=== PATIENT | female | born 1990 | race Caucasian/White ===

== ENCOUNTER → 2017-07-12 | Outpatient (CLI) | payer BC ==
[~2017-07-12] MED LIST: BREA1EAC5 MC; DCS100C PO; FOLI1TAB24 PO; HYDR-3720 PO; IBP800T PO; PREN1TAB19 PO
--- NOTE | 2017-07-12 09:37 | Diagnostic Imaging Report ---
PROCEDURE: US right lower extremity venous. TECHNIQUE: Multiple Real-time grayscale images were obtained over the right lower extremity in various projections. Additional duplex Doppler and color Doppler images were also obtained. DATE: 07/12/2017. INDICATION: 27-year-old female, right calf pain in . Evaluation for deep venous thrombosis. COMPARISON: None. FINDINGS: The right common femoral vein, right superficial femoral vein, and right popliteal vein are all compressible with normal flow and response to augmentation. The right posterior tibial and peroneal veins are patent. The visualized portions of the right deep femoral vein are patent. IMPRESSION: Negative for right lower extremity deep venous thrombosis. Dictated by: Dictated on workstation # [id number]
== END ==
LOC: RAD 08:52
PROVIDERS: ATTEND Obstetrics & Gynecology
DX: O99.89 Other specified diseases and conditions complicating pregnancy, childbirth and the puerperium (principal); Z3A.00 Weeks of gestation of pregnancy not specified

== ENCOUNTER 2017-08-01 15:43 | Outpatient (CLI) | payer BC ==
[~2017-08-01] VITALS: Ht 160 cm; Wt 90.3 kg
[2017-08-01 16:05] VITALS: BP 131/81
[2017-08-01] MEDS ORDERED: INFLUENZA TRIvalent 2017-2018 0.5 ML/45 MCG SYR IM ONE (16:45)
[2017-08-01] MEDS ORDERED: ONDANSETRON 4 MG/2 ML (SDV) Z0FRAN IVP ONE (17:00)
[2017-08-01] MEDS ORDERED: D5 LR IV SOLUTION 1,000 ML IV ONE (17:00)
[2017-08-01 17:35] LABS: BASOPHILS % (AUTO) 0 % (0-10); EOSINOPHILS % (AUTO) 0 % (0-10); HEMATOCRIT 37 % (35-52); LYMPHOCYTES % (AUTO) 6 % (12-44); MEAN CORPUSCULAR HEMOGLOBIN 31 PG (25-34); MEAN CORPUSCULAR HGB CONC 35 G/DL (32-36); MEAN CORPUSCULAR VOLUME 88 FL (80-99); MEAN PLATELET VOLUME 10.7 FL (7.4-10.4); MONOCYTES # (AUTO) 0.5 X 10^3 (0.0-1.0); MONOCYTES % (AUTO) 3 % (0-12); NEUTROPHILS # (AUTO) 15.1 X 10^3 (1.8-7.8); NEUTROPHILS % (AUTO) 91 % (42-75); PLATELET COUNT 232 10^3/uL (130-400); RED BLOOD COUNT 4.16 10^6/uL (4.35-5.85); RED CELL DISTRIBUTION WIDTH 13.8 % (10.0-14.5); WHITE BLOOD COUNT 16.6 10^3/uL (4.3-11.0)
[2017-08-01 17:57] LABS: ALANINE AMINOTRANSFERASE 17 U/L (0-55); ALBUMIN 3.4 GM/DL (3.2-4.5); ALKALINE PHOSPHATASE 122 U/L (40-136); BILIRUBIN,TOTAL 0.8 MG/DL (0.1-1.0); BUN/CREATININE RATIO 8; CALCIUM 9.2 MG/DL (8.5-10.1); CARBON DIOXIDE 20 MMOL/L (21-32); CHLORIDE 106 MMOL/L (98-107); CREATININE SERUM 0.61 MG/DL (0.60-1.30); GFR ESTIMATED > 60; GLUCOSE 87 MG/DL (70-105); POTASSIUM 3.8 MMOL/L (3.6-5.0); SODIUM 135 MMOL/L (135-145); TOTAL PROTEIN 6.7 GM/DL (6.4-8.2)
[2017-08-01 18:02] LABS: BAND NEUTROPHILS 8 %; BASOPHILS % (MANUAL) 0 %; EOSINOPHILS % (MANUAL) 0 %; LYMPHOCYTES % (MANUAL) 7 %; MONOCYTES % (MANUAL) 1 %; NEUTROPHILS % (MANUAL) 84 %; RBC MORPH NORMAL
[2017-08-01 18:10] VITALS: BP 132/82
[2017-08-01 19:15] VITALS: BP 132/82
--- NOTE | 2017-08-02 16:24 | Physician Query-Final Dx ---
SATNAM OCASIO 08/02/17 1624: Clinic Account Progress/Dx Physician Query: Please give diagnosis Date of Service Aug 01, 2017 at 15:43 ALVIN TILLMAN MD 08/03/17 0809: Clinic Account Progress/Dx DIAGNOSIS: Diagnosis False labor NINFA,SATNAM Aug 02, 2017 16:24 ALVIN TILLMAN MD Aug 03, 2017 08:09
== END 2017-08-01 19:15 | disposition home or self-care (01) ==
LOC: WSo 15:43 → LDRP 15:43 → WSo 19:15
PROVIDERS: ATTEND Obstetrics & Gynecology
DX: O47.03 False labor before 37 completed weeks of gestation, third trimester (principal); Z3A.31 31 weeks gestation of pregnancy
CPT/HCPCS: 36415; 80053; 85007; 85027; 96360; 96361; 99214

== ENCOUNTER → 2017-08-24 | Outpatient (CLI) | payer BC | LOC: LABNPT 13:26 | PROVIDERS: ATTEND Obstetrics & Gynecology | DX: O28.8 Other abnormal findings on antenatal screening of mother (principal) | CPT/HCPCS: 82570; 84156 ==

== ENCOUNTER → 2017-08-31 | Outpatient (CLI) | payer BC | LOC: LABNPT 13:34 | PROVIDERS: ATTEND Obstetrics & Gynecology | DX: O28.8 Other abnormal findings on antenatal screening of mother (principal) | CPT/HCPCS: 82570; 84156 ==

== ENCOUNTER 2017-09-13 11:38 | Outpatient (CLI) | payer BC ==
[~2017-09-13] VITALS: Ht 160 cm; Wt 90.3 kg
[2017-09-13] VITALS (10 sets, daily range): BP systolic 132–173; BP diastolic 82–104
[2017-09-13 12:28] LABS: BASOPHILS % (AUTO) 0 % (0-10); EOSINOPHILS % (AUTO) 0 % (0-10); HEMATOCRIT 34 % (35-52); HEMOGLOBIN 11.6 G/DL (11.5-16.0); LYMPHOCYTES # (AUTO) 1.2 X 10^3 (1.0-4.0); LYMPHOCYTES % (AUTO) 16 % (12-44); MEAN CORPUSCULAR HEMOGLOBIN 29 PG (25-34); MEAN CORPUSCULAR HGB CONC 34 G/DL (32-36); MEAN CORPUSCULAR VOLUME 86 FL (80-99); MEAN PLATELET VOLUME 11.7 FL (7.4-10.4); MONOCYTES # (AUTO) 0.5 X 10^3 (0.0-1.0); MONOCYTES % (AUTO) 7 % (0-12); NEUTROPHILS # (AUTO) 5.9 X 10^3 (1.8-7.8); NEUTROPHILS % (AUTO) 77 % (42-75); PLATELET COUNT 212 10^3/uL (130-400); RED BLOOD COUNT 3.98 10^6/uL (4.35-5.85); RED CELL DISTRIBUTION WIDTH 13.4 % (10.0-14.5); WHITE BLOOD COUNT 7.6 10^3/uL (4.3-11.0)
[2017-09-13 12:50] LABS: ALANINE AMINOTRANSFERASE 6 U/L (0-55); ALKALINE PHOSPHATASE 154 U/L (40-136); BILIRUBIN,TOTAL 0.4 MG/DL (0.1-1.0); BUN/CREATININE RATIO 11; CALCIUM 8.7 MG/DL (8.5-10.1); CARBON DIOXIDE 22 MMOL/L (21-32); CHLORIDE 108 MMOL/L (98-107); CREATININE SERUM 0.71 MG/DL (0.60-1.30); GFR ESTIMATED > 60; GLUCOSE 75 MG/DL (70-105); SODIUM 137 MMOL/L (135-145); TOTAL PROTEIN 5.8 GM/DL (6.4-8.2); URIC ACID 7.7 MG/DL (2.6-7.2)
--- NOTE | 2017-09-15 09:05 | Physician Query-Final Dx ---
SATNAM OCASIO 09/15/17 0905: Clinic Account Progress/Dx Physician Query: Please give diagnosis Date of Service Sep 13, 2017 at 11:38 ALVIN TILLMAN MD 09/16/17 1145: Clinic Account Progress/Dx DIAGNOSIS: Diagnosis severe PARUL SATNAM OCASIO Sep 15, 2017 09:05 ALVIN TILLMAN MD Sep 16, 2017 11:45
[2017-09-15] MEDS ORDERED: PREN-102 PO (10:45)
== END 2017-09-13 13:54 | disposition home or self-care (01) ==
LOC: WSo 11:38 → LDRP 11:39 → WSo 13:54
PROVIDERS: ATTEND Obstetrics & Gynecology
DX: O13.3 Gestational [pregnancy-induced] hypertension without significant proteinuria, third trimester (principal); Z3A.37 37 weeks gestation of pregnancy
CPT/HCPCS: 36415; 80053; 82570; 83615; 84156; 84550; 85025; 99213

== ENCOUNTER 2017-09-16 10:06 | Inpatient (IN) | payer BC ==
[2017-09-16] VITALS (7 sets, daily range): BP systolic 100–179; BP diastolic 60–104
[~2017-09-16] VITALS: Ht 160 cm; Wt 95.7 kg
[~2017-09-16 10:06] MED LIST changes: +PREN-102 PO
[2017-09-16] MEDS ORDERED: raNItidine 50 MG/NS 100 ML IVP IV NR ×2 (10:38)
[2017-09-16] MEDS ORDERED: CATHETER FLUSH 10 ML SYR IV PRN (10:45)
[2017-09-16] MEDS ORDERED: metroNIDAZOLE 500MG/100ML IVPB 100 ML IV ONE ×2 (10:45→11:45)
[2017-09-16] MEDS ORDERED: FAMOTIDINE 20MG/2ML IV (PEPCID) IV ONE (10:45)
[2017-09-16] MEDS ORDERED: CITRIC ACID/SOB CIT (BICITRA) 30 ML UDC PO ONE (10:45)
[2017-09-16] MEDS ORDERED: METOCLOPRAMIDE INJ 10 MG/2 ML (REGLAN) IV ONE (10:45)
[2017-09-16] MEDS ORDERED: ceFAZolin 2 GM IV Premixed 50 ML IV ONE (10:45)
[2017-09-16 10:54] LABS: BASOPHILS % (AUTO) 0 % (0-10); EOSINOPHILS % (AUTO) 0 % (0-10); HEMATOCRIT 37 % (35-52); HEMOGLOBIN 12.6 G/DL (11.5-16.0); LYMPHOCYTES # (AUTO) 1.6 X 10^3 (1.0-4.0); LYMPHOCYTES % (AUTO) 17 % (12-44); MEAN CORPUSCULAR HEMOGLOBIN 30 PG (25-34); MEAN CORPUSCULAR HGB CONC 34 G/DL (32-36); MEAN CORPUSCULAR VOLUME 87 FL (80-99); MEAN PLATELET VOLUME 11.8 FL (7.4-10.4); MONOCYTES # (AUTO) 0.7 X 10^3 (0.0-1.0); MONOCYTES % (AUTO) 8 % (0-12); NEUTROPHILS # (AUTO) 6.7 X 10^3 (1.8-7.8); NEUTROPHILS % (AUTO) 75 % (42-75); PLATELET COUNT 223 10^3/uL (130-400); RED BLOOD COUNT 4.26 10^6/uL (4.35-5.85); RED CELL DISTRIBUTION WIDTH 13.9 % (10.0-14.5)
[2017-09-16] MEDS ORDERED: D5 LR IV SOLUTION 1,000 ML IV SCH (11:34)
[2017-09-16] MEDS ORDERED: fentaNYL INJECTION 100 MCG/2 ML AMP ONE (11:37)
[2017-09-16] MEDS ORDERED: KETAMINE HCL 100 MG/ML 5 ML VIAL ONE (11:37)
--- NOTE | 2017-09-16 11:44 | History & Physical ---
History and Physical Date Seen by Provider: Sep 16, 2017 Time Seen by Provider: 11:40 This patient is a 26-year-old white female currently at 38-2/7 weeks' gestation with a due date of September 28, 2017. Her has been complicated by fairly significant PIH. Repeat lab work for preeclampsia and/or help syndrome have been reassuring. Patient denies rupture membranes or bleeding. Patient presents now for repeat delivery at 38-2/7 weeks' gestation due to her severe PIH. GBS culture was negative Allergies are none Medications are vitamins Medical social and surgical histories are per the antepartum record HEENT exam is normal Neck is supple no lymphadenopathy no thyromegaly Abdomen is gravid soft nontender nondistended Extremities show no clubbing cyanosis. There is no Homans sign. There is fairly notable pretibial pitting edema that is stable. Pelvic exam is deferred Blood pressures on admission are elevated to the 150s to 160s over 100 to 110s with episodically lower blood pressures Laboratory Tests 09/16/17 10:35 Assessment and plan 38-7 weeks gestation in patient with PIH and previous C- section admitted now for repeat delivery. Surgical risks and complications recovery and follow-up have all been fully discussed on this occasion and several times prior to now patient is ready to proceed 38-2/7 weeks gestation with PIH and previous Allergies and Home Medications Allergies Coded Allergies: No Known Drug Allergies (Unverified , 09/15/17) Home Medications Vits #93/Iron Fum/FA 1 Each Tablet, 1 EACH PO DAILY, (Reported) Patient Home Medication List Home Medication List Reviewed: Yes ALVIN TILLMAN MD Sep 16, 2017 11:44
[2017-09-16] MEDS ORDERED: ONDANSETRON 4 MG/2 ML (SDV) Z0FRAN IVP PRN (11:45)
[2017-09-16] MEDS ORDERED: ceFAZolin INJECTION 2,000 MG in NS (IVPB) 100 ML IV ONE (11:45)
[2017-09-16] MEDS ORDERED: D5 LR IV SOLUTION 1,000 ML IV ONE (11:45)
[2017-09-16] MEDS ORDERED: MEPERIDINE (DEMEROL) INJ 100 MG/ML IM PRN (11:45)
[2017-09-16] MEDS ORDERED: MEASLES,MUMPS,RUBELLA 1 EA INJ SC ONE (11:45)
[2017-09-16] MEDS ORDERED: TETANUS,DIPTH,PERTUSS P/F (BOOSTRIX) 0.5 ML VIAL IM ONE (11:45)
[2017-09-16] MEDS ORDERED: PROMETHAZINE INJ 25 MG/ML (PHENERGAN) AMP IM PRN (11:45)
[2017-09-16] MEDS ORDERED: PHENYLEPHRINE 100 MCG/ML 10 ML (ANESTHESIA) SYR ONE (12:29)
[2017-09-16] MEDS ORDERED: KETOROLAC 30 MG/ML VIAL ONE (12:30)
[2017-09-16] MEDS ORDERED: ONDANSETRON 4 MG/2 ML (SDV) Z0FRAN ONE (12:30)
[2017-09-16] MEDS ORDERED: LIDOCAINE PF 2% 5 ML (XYLOCAINE) VIAL ONE (12:36)
[2017-09-16] MEDS ORDERED: OXYTOCIN/NORMAL SALINE 1,000 ML IV ONE (12:36)
[2017-09-16] MEDS: KETOROLAC 30 MG/ML VIAL IVP SCH ×2 (12:40→19:59)
[2017-09-16] MEDS: OXYTOCIN/NORMAL SALINE 500 ML IV SCH ×2 (12:55→16:17)
[2017-09-16] MEDS ORDERED: LACTATED RINGERS 1,000 ML IV PRN (14:50)
[2017-09-16] MEDS: DOCUSATE SODIUM 100 MG (COLACE) CAP PO SCH (21:38)
[2017-09-17 00:30] VITALS: BP 134/81
--- NOTE | 2017-09-17 01:08 | OPERATIVE REPORT ---
DATE OF SERVICE: 09/16/2017 PREOPERATIVE DIAGNOSES: Term at 38 and 2/7 weeks' gestation with severe PIH and a previous . POSTOPERATIVE DIAGNOSES: Term at 38 and 2/7 weeks' gestation with severe PIH and a previous . OPERATIVE PROCEDURE: Repeat low transverse delivery of viable female infant with Apgars of 7 and 9 at 1 and 5 minutes respectively. Weight that is 7 lbs. 2 oz. time of 12:30 and cord blood pH was 7.3. OPERATIVE DESCRIPTION: With the patient in the supine position under satisfactory spinal anesthesia, she was prepped and draped in the usual fashion for abdominal surgery. A repeat Pfannenstiel incision made through the skin with a scalpel at the site of the patient's previous Pfannenstiel incision by removing that scar. The abdomen was then entered in the usual manner. Bladder retractor placed into position and clean scalpel was used to make a 4 cm hysterotomy incision transversely across the lower uterine segment. That incision was extended bluntly releasing clear fluid. A vigorous viable female was delivered via the uterine incision. Infant had Apgars of 7 and 9 and at 1 and 5 minutes respectively. The had spontaneous cry, moved all extremities and was quickly pink. The baby was bulb suctioned on delivery of the head and again on completion of delivery. The umbilical cord was doubly clamped and cut and the infant passed to the pediatric nurse in attendance for delivery. Cord bloods were obtained. The placenta delivered spontaneously Carbone. It was normal with a 3-vessel cord. The uterus was exteriorized. The interior wiped clean with a wet laparotomy sponge. Uterine incision was then closed with a running lock suture of 2-0 Vicryl. Hemostasis was complete. The uterus was returned to the abdominal cavity. All blood clot and debris removed from the abdominal cavity. With sponge, needle counts correct, hemostasis assured. The anterior parietal peritoneum was closed with running suture of 2-0 Vicryl. The rectus muscles were closed with that suture as well. The rectus fascia was closed with 2-0 Vicryl, subcutaneous tissue with 2-0 Vicryl and the skin was stapled. Sponge and needle counts were correct at the end of procedure. Estimated blood loss for the procedure was around 500 mL. The patient tolerated the procedure well and was transferred to the recovery room in stable condition. The infant had been taken stable to the full term nursery. Job ID: [id number] DocumentID: [id number] Dictated Date: 09/16/2017 12:51:47 Bull Ladle Tender Date: 09/16/2017 23:16:05 Dictated By: ALVIN TILLMAN MD MTDD
[2017-09-17] MEDS: KETOROLAC 30 MG/ML VIAL IVP SCH ×2 (02:34→09:30)
[2017-09-17 04:55] VITALS: BP 130/76
--- NOTE | 2017-09-17 07:57 | Progress Note-Standard ---
Standard Progress Note Progress Notes/Assess & Plan Date Seen by Provider: Sep 17, 2017 Time Seen by Provider: 07:56 Progress/Assessment & Plan This patient is without complaint. She is ambulating, voiding, tolerating oral intake well, has good pain control. Patient denies chest pain, denies shortness of breath, denies headache, denies nausea vomiting. Vital Signs Date Time Temp Pulse Resp B/P (MAP) Pulse Ox O2 Delivery O2 Flow Rate FiO2 09/17/17 04:55 98.6 94 18 130/76 (94) 98 Room Air 09/17/17 00:30 99.0 102 18 134/81 (98) 96 Room Air 09/16/17 19:55 97.6 93 18 130/80 (97) 98 Room Air 09/16/17 17:25 96.1 96 18 100/60 (73) 97 Room Air 09/16/17 15:50 117 20 138/84 (102) 100 Room Air 09/16/17 14:59 97.9 83 18 154/93 (113) Room Air 09/16/17 11:14 93 20 162/104 (123) Room Air 09/16/17 10:56 75 20 155/96 (115) Room Air 09/16/17 10:40 98.2 80 20 179/86 (117) Room Air I & O 09/17/17 07:00 Intake Total 2222 ml Output Total 1000 ml Balance 1222 ml Vital signs are stable. Patient is afebrile. Blood pressures have been quite labile from the time of admission but are normalizing now The abdomen is benign. The surgical incision is clean dry and intact. Extremities show clubbing cyanosis. There is no Homans sign. There is notable pretibial edema that is not abnormal at this point Assessment and plan postoperative day number 1 doing well. Plan for routine convalescence care today and consider discharge home tomorrow ALVIN TILLMAN MD Sep 17, 2017 7:57 am
[2017-09-17 09:30] VITALS: BP 144/92
[2017-09-17] MEDS ORDERED: KETOROLAC 30 MG/ML VIAL ONE (09:30)
[2017-09-17] MEDS: DOCUSATE SODIUM 100 MG (COLACE) CAP PO SCH ×2 (09:35→20:01)
--- NOTE | 2017-09-17 13:48 | Anesthesia-Regional Post-Op ---
Regional Patient Condition Mental Status: Alert, Oriented x3 Circulation: Same as Pre-Op Headache: Absent Sensation: Full Recovery Motor Block: Absent Post Op Complications Complications None Follow Up Care/Instructions Patient Instructions None needed. Anesthesia/Patient Condition Patient is doing well, no complaints, stable vital signs, no apparent adverse anesthesia problems. VARSHA MONTERO DO Sep 17, 2017 13:48
[2017-09-17 14:45] VITALS: BP 152/94
[2017-09-17] MEDS: IBUPROFEN 800 MG (MOTRIN) TAB PO SCH ×2 (14:45→20:01)
[2017-09-17 20:01] VITALS: BP 144/93
[2017-09-17] MEDS: oxyCODONE/APAP 10/325MG (PERCOCET 10) TABLET PO PRN (21:14)
[2017-09-18] MEDS: oxyCODONE/APAP 10/325MG (PERCOCET 10) TABLET PO PRN ×3 (00:22→10:34)
[2017-09-18 02:10] VITALS: BP 139/95
[2017-09-18] MEDS: IBUPROFEN 800 MG (MOTRIN) TAB PO SCH ×2 (02:10→09:32)
[2017-09-18 08:00] VITALS: BP 151/103
--- NOTE | 2017-09-18 08:19 | Progress Note-Standard ---
Standard Progress Note Progress Notes/Assess & Plan Date Seen by Provider: Sep 18, 2017 Time Seen by Provider: 08:17 Progress/Assessment & Plan This patient is without complaint. She is ambulating, voiding, tolerating oral intake well, has good pain control. Patient denies chest pain, denies shortness of breath, denies headache, denies nausea vomiting. Vital Signs Date Time Temp Pulse Resp B/P (MAP) Pulse Ox O2 Delivery O2 Flow Rate FiO2 09/17/17 04:55 98.6 94 18 130/76 (94) 98 Room Air 09/17/17 00:30 99.0 102 18 134/81 (98) 96 Room Air 09/16/17 19:55 97.6 93 18 130/80 (97) 98 Room Air 09/16/17 17:25 96.1 96 18 100/60 (73) 97 Room Air 09/16/17 15:50 117 20 138/84 (102) 100 Room Air 09/16/17 14:59 97.9 83 18 154/93 (113) Room Air 09/16/17 11:14 93 20 162/104 (123) Room Air 09/16/17 10:56 75 20 155/96 (115) Room Air 09/16/17 10:40 98.2 80 20 179/86 (117) Room Air I & O 09/17/17 07:00 Intake Total 2222 ml Output Total 1000 ml Balance 1222 ml Vital signs are stable. Patient is afebrile. Blood pressures have been quite labile from the time of admission but are normalizing now The abdomen is benign. The surgical incision is clean dry and intact. Extremities show clubbing cyanosis. There is no Homans sign. There is notable pretibial edema that is not abnormal at this point Assessment and plan postoperative day number 1 doing well. Plan for routine convalescence care today and consider discharge home tomorrow September 18, 2017 Patient without complaint. She is ambulating, voiding, tolerating by mouth well , has good pain control. She is requesting discharge home. Vital Signs Date Time Temp Pulse Resp B/P (MAP) Pulse Ox O2 Delivery O2 Flow Rate FiO2 09/18/17 02:10 98.6 90 18 139/95 (110) 99 Room Air 09/17/17 20:01 98.6 92 18 144/93 (110) 99 Room Air 09/17/17 14:45 99.1 103 18 152/94 (113) 97 Room Air 09/17/17 09:30 97.8 101 18 144/92 (109) 95 Room Air I & O 09/18/17 07:00 Intake Total 700 ml Output Total 1400 ml Balance -700 ml Vital signs are stable. Patient is afebrile. The abdomen is benign. Incision is clean dry and intact. Fundus is firm below the umbilicus. Extreme show no clubbing cyanosis. There is no Homans sign. There is notable pretibial pitting edema that is not new and is stable Assessment and plan postoperative day number 2 status post repeat delivery at 38-7 weeks gestation. Patient doing well will be discharged home with follow-up in clinic and her blood pressure we monitored outpatient. Final Diagnosis Term operative delivery ALVIN TILLMAN MD Sep 18, 2017 8:19 am
--- NOTE | 2017-09-18 08:21 | Discharge Instructions ---
Discharge Instructions Discharge Medications New, Converted or Re-Newed RX: RX on Chart Patient Instructions Patient Instructions: As directed Return to The Hospital For: As directed Activity & Diet Discharge Diet: No Restrictions Activity as Tolerated: No Orders-Post D/C & Referrals Follow Up Appt: RTC on Sunday, September 24, 2017 at 930 a.m. week for incision check. Call to make follow up appt. for patient in 4 weeks. Wound Care: Remove jose daniel, apply benzoin and steri strips. Activity Per routine post instructions. Please call in RX to patient pharmacy. Diet as tolerated Patient may shower or tub bathe as desired. Continue home meds ALVIN TILLMAN MD Sep 18, 2017 8:21 am
[2017-09-18] MEDS ORDERED: OXYC-465 PO (08:22)
[2017-09-18] MEDS ORDERED: DOCU100C37 PO (08:22)
[2017-09-18] MEDS ORDERED: IBUP-1780 PO (08:22)
[2017-09-18] MEDS: DOCUSATE SODIUM 100 MG (COLACE) CAP PO SCH (09:32)
== END 2017-09-18 13:00 | disposition home or self-care (01) | DRG 765 ==
LOC: LDRP 10:06
PROVIDERS: ADMIT Obstetrics & Gynecology; ATTEND Obstetrics & Gynecology
PROC: 10D00Z1 Extraction of Products of Conception, Low, Open Approach (ICD-10-PCS; principal; 2017-09-16 12:00)
DX: O34.211 Maternal care for low transverse scar from previous cesarean delivery (principal); O13.3 Gestational [pregnancy-induced] hypertension without significant proteinuria, third trimester; Z3A.38 38 weeks gestation of pregnancy; Z37.0 Single live birth
CPT/HCPCS: 36415; 85025; 86850; 86900; 86901; 87081; 88307; 94664

== ENCOUNTER → 2019-03-24 | Outpatient (CLI) | payer BC ==
[~2019-03-24] MED LIST changes: +BARIUM SUSPENSION 105% (LIQUID POLIBAR PLUS) 240 ML/DOSE PO ONE; +BARIUM SUSPENSION 60% (LIQUID EZ PAQUE) 240 ML DOSE PO ONE; +DOCU100C37 PO; +IBUP-1780 PO; +OXYC-465 PO
--- NOTE | 2019-03-24 12:29 | Diagnostic Imaging Report ---
INDICATION: Dysphagia. Patient ingested effervescent crystals as well as thin and thick barium and imaging of the esophagus was performed. 1 minute and 2 seconds of fluoroscopic time was utilized. Preliminary radiograph of chest is unremarkable. The esophagus has a smooth contour. No mass or stricture is identified. No gastroesophageal reflux or hiatal hernia is demonstrated. IMPRESSION: Unremarkable esophagram. Dictated by: Dictated on workstation # [id number]
--- NOTE | 2019-03-24 13:59 | Diagnostic Imaging Report ---
PROCEDURE: US Thyroid. TECHNIQUE: Multiple real-time grayscale images were obtained of the thyroid in various projections. INDICATION: Thyroid nodule. COMPARISON: None available. FINDINGS: The right lobe of the thyroid gland measures 4.8 x 1.2 x 1.5 cm. A 0.4 x 0.4 cm round hypoechoic solid nodule is present within the inferior aspect of the right thyroid lobe measuring 0.4 x 0.4 cm. This is wider than tall. This demonstrates circumscribed and partially ill-defined margins. No internal vascularity or microcalcifications. The left lobe of the thyroid gland measures 4.6 x 1.3 x 2.0 cm. A couple of round sub-0.4 cm cystic nodules are present within the left thyroid lobe without internal vascularity or internal calcifications. The isthmus is unremarkable. IMPRESSION: Bilateral 4 mm and smaller thyroid nodules. These are felt to relate to TI-RADS 2 nodules, which are felt to be not suspicious. Dictated by: Dictated on workstation # [id number]
== END ==
LOC: RAD 10:57
PROVIDERS: ATTEND Nurse Practitioner Family
DX: E04.2 Nontoxic multinodular goiter (principal); R13.10 Dysphagia, unspecified
CPT/HCPCS: 74220; 76536

== ENCOUNTER → 2019-04-07 | Outpatient (CLI) | payer BC ==
[~2019-04-07] MED LIST changes: -BARIUM SUSPENSION 105% (LIQUID POLIBAR PLUS) 240 ML/DOSE PO ONE; -BARIUM SUSPENSION 60% (LIQUID EZ PAQUE) 240 ML DOSE PO ONE; +CATHETER FLUSH 10 ML SYR IV PRN; +HOLD METFORMIN - RECEIVED CONTRAST 20 ML VIAL IV SCH; +IOHEXOL 350 MG/ML 100 ML (OMNIPAQUE 350) VIAL IV ONE; +NS 100 ML (IVPB) BAG IV ONE
--- NOTE | 2019-04-07 17:05 | Diagnostic Imaging Report ---
PROCEDURE: CT neck soft tissue with contrast. TECHNIQUE: Multiple contiguous axial images were obtained through the neck after the administration of contrast. Auto Exposure Controls were utilized during the CT exam to meet ALARA standards for radiation dose reduction. INDICATION: Right neck mass. Reported parapharyngeal mass. Difficulty swallowing. FINDINGS: The visualized intracranial contents are unremarkable without mass effect or abnormal enhancement. The mastoid air cells and middle ears appear clear. The visualized paranasal sinuses are clear. The posterior nasopharynx and oropharynx appear appropriately symmetric. There is no displacement of the parapharyngeal fat planes or abnormal mass within the parapharyngeal space. There is no abnormal process evident within the prevertebral or retropharyngeal space. There is no thickening of the epiglottis. The valleculae and piriform sinuses are well aerated. Vocal folds appear symmetric. The parotid and submandibular glands are unremarkable. There appear to be tiny thyroid nodules. A metallic marker placed with patient's assistance at the site of reported abnormality overlies the right aspect of the inferior thyroid cartilage. There is no underlying mass evident at this location. There are a few minimally prominent cervical lymph nodes. These are likely reactive in nature. The largest is on the left at level IIA and has a short axis of just under 10 mm. The lung apices appear clear. No acute or suspicious cervical spine abnormality demonstrated. IMPRESSION: 1. Appropriate symmetry of the aerodigestive tract. 2. A few minimally prominent cervical lymph nodes are likely reactive in nature. The largest is at level IIA on the left and measures less than 10 mm in short axis. 3. Metallic marker placed with patient's assistance at the reported site of palpable abnormality overlies no abnormal underlying soft tissue process. 4. The parapharyngeal space is unremarkable. Dictated by: Dictated on workstation # [id number]
== END ==
LOC: RAD 15:48
PROVIDERS: ATTEND Otolaryngology Otolaryngology/Facial Plastic Surgery
DX: J39.2 Other diseases of pharynx (principal); R13.10 Dysphagia, unspecified
CPT/HCPCS: 70491

== ENCOUNTER 2019-07-13 20:15 | Emergency (ER) | payer BC, MEDICAID, OTHER ==
[~2019-07-13] VITALS: Ht 157 cm; Wt 86.0 kg
[~2019-07-13 20:15] MED LIST changes: -CATHETER FLUSH 10 ML SYR IV PRN; -HOLD METFORMIN - RECEIVED CONTRAST 20 ML VIAL IV SCH; -IOHEXOL 350 MG/ML 100 ML (OMNIPAQUE 350) VIAL IV ONE; -NS 100 ML (IVPB) BAG IV ONE
[2019-07-13] MEDS ORDERED: NORG1TAB14 PO (21:08)
[2019-07-13] MEDS ORDERED: PHEN-483 PO (21:08)
[2019-07-13 21:57] LABS: BILIRUBIN,URINE NEGATIVE (NEGATIVE); CLARITY,URINE CLEAR; COLOR,URINE YELLOW; GLUCOSE, URINE (UA) NEGATIVE (NEGATIVE); KETONES,URINE NEGATIVE (NEGATIVE); LEUKOCYTE ESTERASE ,URINE NEGATIVE (NEGATIVE); NITRITE,URINE NEGATIVE (NEGATIVE); PROTEIN,URINE NEGATIVE (NEGATIVE)
[2019-07-13 22:04] LABS: BACTERIA,URINE TRACE /HPF
[2019-07-13 22:15] LABS: BASOPHILS % (AUTO) 0 % (0-10); EOSINOPHILS % (AUTO) 0 % (0-10); HEMATOCRIT 45 % (35-52); HEMOGLOBIN 15.2 G/DL (11.5-16.0); LYMPHOCYTES # (AUTO) 2.2 X 10^3 (1.0-4.0); LYMPHOCYTES % (AUTO) 29 % (12-44); MEAN CORPUSCULAR HEMOGLOBIN 29 PG (25-34); MEAN CORPUSCULAR HGB CONC 34 G/DL (32-36); MEAN CORPUSCULAR VOLUME 86 FL (80-99); MEAN PLATELET VOLUME 9.8 FL (7.4-10.4); MONOCYTES # (AUTO) 0.6 X 10^3 (0.0-1.0); MONOCYTES % (AUTO) 8 % (0-12); NEUTROPHILS # (AUTO) 4.8 X 10^3 (1.8-7.8); NEUTROPHILS % (AUTO) 63 % (42-75); PLATELET COUNT 304 10^3/uL (130-400); RED CELL DISTRIBUTION WIDTH 13.1 % (10.0-14.5); WHITE BLOOD COUNT 7.6 10^3/uL (4.3-11.0)
[2019-07-13 22:23] LABS: PROTHROMBIN TIME PATIENT 13.3 SEC (12.2-14.7)
[2019-07-13 22:30] LABS: ALANINE AMINOTRANSFERASE 31 U/L (0-55); ALBUMIN 4.5 GM/DL (3.2-4.5); ALKALINE PHOSPHATASE 89 U/L (40-136); BILIRUBIN,TOTAL 0.6 MG/DL (0.1-1.0); BUN/CREATININE RATIO 14; CALCIUM 9.8 MG/DL (8.5-10.1); CARBON DIOXIDE 26 MMOL/L (21-32); CHLORIDE 101 MMOL/L (98-107); CREATINE KINASE 48 U/L (29-168); CREATININE SERUM 0.85 MG/DL (0.60-1.30); GFR ESTIMATED > 60; GLUCOSE 95 MG/DL (70-105); SODIUM 138 MMOL/L (135-145); TOTAL PROTEIN 7.7 GM/DL (6.4-8.2)
[2019-07-13 22:37] LABS: CREATINE KINASE MB 0.6 NG/ML (<6.6)
--- NOTE | 2019-07-13 23:08 | ED General ---
General Chief Complaint: Cardiac/General Problems Stated Complaint: B/P HIGH, ARM ACHING Nursing Triage Note: PT ARRIVES TO TRIAGE C/O RECENT HIGH BLOOD PRESSURE AND L ARM ACHE/ WEAKNESS THAT ONSET YESTERDAY AROUND 1500. PT DENIES KNOWN HX OF CARDIAC ISSUES OR THE USE OF BP MEDS. PT DENIES CP OR SOB Nursing Sepsis Screen: No Definite Risk Source of Information: Patient History of Present Illness Date Seen by Provider: Jul 13, 2019 Time Seen by Provider: 21:42 Initial Comments PT ARRIVES VIA POV FROM HOME STATES SHE HAS HAD A DULL, ACHING PAIN/HEAVINESS OF LEFT ARM--FROM SHOULDER TO WRIST, WITH MOST OF IT CONCENTRATED AROUND THE ANTERIOR ASPECT OF ELBOW--SINCE AROUND 1500 YESTERDAY AFTERNOON STATES PAIN BEGAN WHILE SITTING ON COUCH STATES PAIN IS WORSE WITH LIFTING HER LEFT ARM, AND IS BETTER WITH RESTING IT NO PARESTHESIAS OR MOTOR DEFICITS NO NECK OR BACK PAIN NO CHEST PAIN NO SHORTNESS OF BREATH NO PALPITATIONS NO INJURY OR UNUSUAL ACTIVITY NO SWELLING OR DISCOLORATION TO THE ARM NO HEADACHE NO VISION CHANGES NO DIZZINESS SYMPTOMS NO DIFFERENT TONIGHT IN ANY WAY HAS NOT TAKEN ANYTHING FOR PAIN AT ANY TIME HAS NOT ATTEMPTED TO FOLLOW UP WITH HER PCP FOR THIS PROBLEM STATES SHE STARTED ON PHENTERMINE IN MAY, AND HAS LOST 22 LBS IN THE LAST MONTH PT STATES SHE ALSO SWITCHED FROM [employer] TO [employer] IN MAY--DELIVERED IN 2017, BREASTFED FOR 1 1/2 YEARS, AND RECENTLY STOPPED AND SWITCHED CONTROL. HAS BEEN BACK TO DR. BERNABE'S OFFICE ONE TIME, AND ONLY FOR WEIGHT CHECK, SINCE STARTING ON PHENTERMINE. PT HAD PRE-ECLAMPSIA WITH BOTH OF HER PREGNANCIES, BUT BLOOD PRESSURE HAS GONE BACK DOWN TO NORMAL AFTER DELIVERY PCP: DR. BERNABE Allergies and Home Medications Allergies Coded Allergies: No Known Drug Allergies (Unverified , 09/15/17) Patient Home Medication List Home Medication List Reviewed: Yes Review of Systems Review of Systems Constitutional: no symptoms reported; No chills, No diaphoresis, No dizziness, No fever EENTM: no symptoms reported; No blurred vision Respiratory: no symptoms reported; No cough, No short of breath, No wheezing Cardiovascular: no symptoms reported; No chest pain, No edema, No palpitations, No syncope, No vascular heart diseas Gastrointestinal: no symptoms reported; No nausea, No vomiting Genitourinary: no symptoms reported : No LMP: Jul 05, 2019 Musculoskeletal: see HPI; No back pain, No muscle twitching, No muscle weakness , No neck pain Skin: no symptoms reported; No rash Psychiatric/Neurological: No Symptoms Reported; Denies Headache, Denies Numbness, Denies Paresthesia, Denies Tingling, Denies Tremors, Denies Weakness Hematologic/Lymphatic: No Symptoms Reported Immunological/Allergic: no symptoms reported HAD THYROID TESTS DONE, INCLUDING ULTRASOUND, CT IN 03/2018, REFERRED TO [facility]--FOUND TO HAVE BENIGN THYROID NODULES. HAD CT OF NECK DONE 03/2018--NORMAL CERVICAL SPINE. Past Czrwajn-Remrmp-Bgsbuy Hx Past Med/Social Hx: Reviewed and Corrections made Patient Social History Alcohol Use: Denies Use Recreational Drug Use: No Smoking Status: Never a Smoker 2nd Hand Smoke Exposure: No Recent Foreign Travel: No Contact w/Someone Who Travel: No Recent Infectious Disease Expo: No Recent Hopitalizations: No Physical Abuse: No Sexual Abuse: No Mistreated: No Fear: No Immunizations Up To Date Tetanus Booster (TDap): Unknown PED Vaccines UTD: No Seasonal Allergies Seasonal Allergies: No Past Medical History Surgeries: Yes ( X 2; WISDOM TEETH REMOVED) Section Respiratory: No Cardiac: Yes (PRE-ECLAMPSIA) Hypertension Neurological: No : No Last Menstrual Period: Jul 11, 2019 Reproductive Disorders: No Female Reproductive Disorders: Denies Sexually Transmitted Disease: No HIV/AIDS: No Genitourinary: No Gastrointestinal: Yes Gastroesophageal Reflux Musculoskeletal: No Endocrine: Yes (BENIGN THYROID NODULES) HEENT: No Loss of Vision: Bilateral Hearing Impairment: Denies Cancer: No Psychosocial: No Integumentary: No Blood Disorders: No Adverse Reaction/Blood Tranf: No Family Medical History Cancer of colon GRANDPARENTS (Maternal Great Grandfather) Cataract GRANDPARENTS (Maternal Grandmother) Chest pain 19 FATHER Congestive heart failure GRANDPARENTS (Paternal Grandmother) Family history: Arthritis GRANDPARENTS (Maternal Grandmother) Family history: Cardiovascular disease GRANDPARENTS (Paternal Great Grandfather Maternal Great Grandparents) Family history: Diabetes mellitus GRANDPARENTS (Maternal Grandfather) Family history: Hypertension 19 FATHER 19 MOTHER GRANDPARENTS (Maternal Grandparents) Family history: Thyroid disorder 19 MOTHER (Hypothyroid) GRANDPARENTS (Maternal Grandmother-Hypothyroid) History of - disorder GRANDPARENTS (Maternal Grandfather-Cirrhosis) History of - respiratory disease GRANDPARENTS (Paternal Grandmother- COPD) Hypercholesterolemia GRANDPARENTS (Maternal Grandmother) Malignant neoplasm of lung GRANDPARENTS (Paternal Grandmother) Myocardial infarction GRANDPARENTS (Paternal Grandfather Maternal Great Grandmother) Prostate cancer GRANDPARENTS (Maternal Great grandfather Maternal Grandfather) Psychotic disorder GRANDPARENTS (Maternal Grandfather-OCD) No Family History of: Abdominal aortic aneurysm Daggett's disease Alcoholism Aphasia Cancer Congenital heart disease Cystic fibrosis Dementia Dysphagia Family history: Allergy Family history: Alzheimer's disease Family history: Asthma Family history: Breast disease Family history: Coronary thrombosis Family history: Gastrointestinal disease Family history: Glaucoma Family history: Osteoporosis Headache Hearing loss Heart disease Hereditary disease History of - anemia History of drug abuse Human immunodeficiency virus (HIV) seropositivity Infertile Kidney disease Parkinson's disease Seizure disorder Stroke Tuberculosis Visual impairment Physical Exam Vital Signs Vital Signs - First Documented 07/13/19 20:26 Temp 36.9 Pulse 109 Resp 26 B/P (MAP) 154/102 (119) Pulse Ox 100 O2 Delivery Room Air Capillary Refill : Less Than 3 Seconds Height, Weight, BMI Height: 5'3.00" Weight: 211lbs. 0.0oz. [id number]; 34.00 BMI Method: General Appearance: No Apparent Distress, WD/WN, Obese HEENT: PERRL/EOMI Neck: Full Range of Motion, Normal Inspection, Non Tender, Supple; No Carotid Bruit, No JVD Respiratory: Chest Non Tender, Normal Breath Sounds, No Accessory Muscle Use, No Respiratory Distress Cardiovascular: Regular Rate, Rhythm, No Edema, No Gallop, No JVD, No Murmur, Normal Peripheral Pulses Gastrointestinal: Non Tender, Soft Back: Normal Inspection, No CVA Tenderness, No Vertebral Tenderness Extremity: Normal Capillary Refill, Normal Range of Motion, No Calf Tenderness, No Pedal Edema, Other (HAS DIFFUSE TENDERNESS OF LEFT ARM FROM SHOULDER TO WRIST--APPEARS TO BE MORE TENDER OVER MUSCLE, AND LESS BONY TENDERNESS. MOTOR/SENSORY/VASCULAR INTACT. ) Neurologic/Psychiatric: Alert, Oriented x3, No Motor/Sensory Deficits, Normal Mood/Affect, social psychologist II-XII Norm as Tested; No Abnormal Cerebellar Tests Skin: Normal Color, Warm/Dry; No Rash Progress/Results/Core Measures Suspected Sepsis Recent Fever Within 48 Hours: No Infection Criteria Present: None New/Unexplained Altered Menta: No Sepsis Screen: No Definite Risk SIRS Temperature: Pulse: 109 Respiratory Rate: 26 Laboratory Tests 07/13/19 22:00: White Blood Count 7.6 Blood Pressure 154 /102 Mean: 119 Laboratory Tests 07/13/19 22:00: Creatinine 0.85, INR Comment 1.0, Platelet Count 304, Total Bilirubin 0.6 Results/Orders Lab Results Laboratory Tests Test 07/13/19 21:53 07/13/19 22:00 Range/Units Urine Color YELLOW Urine Clarity CLEAR Urine pH 6.0 5-9 Urine Specific [place] <=1.005 1.016-1.022 Urine Protein NEGATIVE NEGATIVE Urine Glucose (UA) NEGATIVE NEGATIVE Urine Ketones NEGATIVE NEGATIVE Urine Nitrite NEGATIVE NEGATIVE Urine Bilirubin NEGATIVE NEGATIVE Urine Urobilinogen 0.2 < = 1.0 MG/DL Urine Leukocyte Esterase NEGATIVE NEGATIVE Urine RBC (Auto) NEGATIVE NEGATIVE Urine RBC NONE /HPF Urine WBC NONE /HPF Urine Squamous Epithelial Cells 5-10 /HPF Urine Crystals NONE /LPF Urine Bacteria TRACE /HPF Urine Casts NONE /LPF Urine Mucus NEGATIVE /LPF Urine Culture Indicated NO White Blood Count 7.6 4.3-11.0 10^3/uL Red Blood Count 5.18 4.35-5.85 10^6/uL Hemoglobin 15.2 11.5-16.0 G/DL Hematocrit 45 35-52 % Mean Corpuscular Volume 86 80-99 FL Mean Corpuscular Hemoglobin 29 25-34 PG Mean Corpuscular Hemoglobin Concent 34 32-36 G/DL Red Cell Distribution Width 13.1 10.0-14.5 % Platelet Count 304 130-400 10^3/uL Mean Platelet Volume 9.8 7.4-10.4 FL Neutrophils (%) (Auto) 63 42-75 % Lymphocytes (%) (Auto) 29 12-44 % Monocytes (%) (Auto) 8 0-12 % Eosinophils (%) (Auto) 0 0-10 % Basophils (%) (Auto) 0 0-10 % Neutrophils # (Auto) 4.8 1.8-7.8 X 10^3 Lymphocytes # (Auto) 2.2 1.0-4.0 X 10^3 Monocytes # (Auto) 0.6 0.0-1.0 X 10^3 Eosinophils # (Auto) 0.0 0.0-0.3 10^3/uL Basophils # (Auto) 0.0 0.0-0.1 10^3/uL Prothrombin Time 13.3 12.2-14.7 SEC INR Comment 1.0 0.8-1.4 Activated Partial Thromboplast Time 31 24-35 SEC Sodium Level 138 135-145 MMOL/L Potassium Level 4.0 3.6-5.0 MMOL/L Chloride Level 101 98-107 MMOL/L Carbon Dioxide Level 26 21-32 MMOL/L Anion Gap 11 5-14 MMOL/L Blood Urea Nitrogen 12 7-18 MG/DL Creatinine 0.85 0.60-1.30 MG/DL Estimat Glomerular Filtration Rate > 60 BUN/Creatinine Ratio 14 Glucose Level 95 70-105 MG/DL Calcium Level 9.8 8.5-10.1 MG/DL Corrected Calcium 9.4 8.5-10.1 MG/DL Magnesium Level 2.0 1.6-2.4 MG/DL Total Bilirubin 0.6 0.1-1.0 MG/DL Aspartate Amino Transf (AST/SGOT) 17 5-34 U/L Alanine Aminotransferase (ALT/SGPT) 31 0-55 U/L Alkaline Phosphatase 89 40-136 U/L Total Creatine Kinase 48 29-168 U/L Creatine Kinase MB 0.6 <6.6 NG/ML Myoglobin 33.6 10.0-92.0 NG/ML Troponin I < 0.028 <0.028 NG/ML B-Type Natriuretic Peptide < 10.0 <100.0 PG/ML Total Protein 7.7 6.4-8.2 GM/DL Albumin 4.5 3.2-4.5 GM/DL Serum Test, Qualitative NEGATIVE NEGATIVE My Orders Orders - ALEC HAYWARD DO Ed Iv/Invasive Line Start (07/13/19 21:50) Ekg Tracing (07/13/19 21:50) Monitor-Rhythm Ecg Trace Only (07/13/19 21:50) Chest 1 View, Ap/Pa Only (07/13/19 21:50) BNP (07/13/19 21:50) Cbc With Automated Diff (07/13/19 21:50) Comprehensive Metabolic Panel (07/13/19 21:50) Creatine Kinase (07/13/19 21:50) Creatine Kinase Mb (07/13/19 21:50) Hcg,Qualitative Serum (07/13/19 21:50) Magnesium (07/13/19 21:50) Protime With Inr (07/13/19 21:50) Partial Thromboplastin Time (07/13/19 21:50) Ua Culture If Indicated (07/13/19 21:50) Myoglobin Serum (07/13/19 21:50) Troponin I (07/13/19 21:50) Vital Signs/I&O 07/13/19 07/13/19 20:26 23:09 Temp 36.9 36.8 Pulse 109 97 Resp 26 12 B/P (MAP) 154/102 (119) 139/97 (119) Pulse Ox 100 98 O2 Delivery Room Air Room Air Capillary Refill : Less Than 3 Seconds Blood Pressure Mean: 119 Progress Note : Progress Note BP DOWN WITHOUT TREATMENT OFFERED PAIN MEDICATIONS HERE OR RX TO TAKE AT HOME, AND PT DECLINES OFFERED TO DO ADDITIONAL TESTING SUCH CT OF NECK OR SHOULDER/ARM AREA AND PT DECLINES, SHE JUST HAD CT OF NECK BP DOWN TO 130'S/90'S WITHOUT TREATMENT, SO WILL HOLD GIVING PT ANY MEDICATIONS TO LOWER BP AT THIS TIME. ADVISED PT TO HOLD PHENTERMINE FOR NOW, AND FOLLOW UP WITH DR. BERNABE FOR FURTHER CARE, INCLUDING RECHECKING BLOOD PRESSURE, AND FURTHER EVALUATION OF LEFT ARM PAIN ECG Initial ECG Impression Date: Jul 13, 2019 Initial ECG Impression Time: 20:30 Initial ECG Rate: 107 Initial ECG Rhythm: S.Tach Initial ECG Comparisson: No Previous ECG Available Diagnostic Imaging Comments CXR--NO ACUTE PROCESS, PENDING RADIOLOGIST REVIEW Reviewed: Reviewed by Me Departure Impression Primary Impression: Left arm pain Additional Impression: HTN (hypertension) Disposition: 01 HOME, SELF-CARE Condition: Stable Departure-Patient Inst. Referrals: OLGA BERNABE MD (PCP) Primary Care Physician ALVIN TILLMAN MD (Family) Primary Care Physician Patient Instructions: High Blood Pressure (DC), Muscle and Bone Pain (DC) Add. Discharge Instructions: HOLD PHENTERMINE TYLENOL AND MOTRIN NEEDED FOR PAIN FOLLOW UP WITH DR. BERNABE THIS WEEK FOR FURTHER CARE, RETURN TO ER IF WORSE All discharge instructions reviewed with patient and/or family. Voiced understanding. ALEC HAYWARD DO Jul 13, 2019 23:08
[2019-07-13 23:09] VITALS: BP 139/97
--- NOTE | 2019-07-14 07:56 | Diagnostic Imaging Report ---
CHEST 1 VIEW, AP/PA ONLY Indication: Chest pain. Comparison: 03/24/2019 Findings: No focal airspace disease in the visualized lungs. Please note that the posterior lower lobes are poorly evaluated by portable radiography. No pleural effusion or pneumothorax. Normal cardiomediastinal silhouette. Impression: 1. No acute cardiopulmonary process by portable radiography. Dictated by: Dictated on workstation # [id number]
== END 2019-07-13 23:11 | disposition home or self-care (01) ==
LOC: EDUNIT# 20:15 → ER 20:17
DX: M79.602 Pain in left arm (principal); I10 Essential (primary) hypertension; Z80.0 Family history of malignant neoplasm of digestive organs; Z82.49 Family history of ischemic heart disease and other diseases of the circulatory system; Z80.1 Family history of malignant neoplasm of trachea, bronchus and lung; Z80.42 Family history of malignant neoplasm of prostate
CPT/HCPCS: 36415; 71045; 80053; 81000; 82550; 82553; 83735; 83874; 83880; 84484; 84703; 85025; 85610; 85730; 93005; 93041

== ENCOUNTER 2022-05-27 13:39 | Outpatient (CLI) | payer OTHER ==
[~2022-05-27] VITALS: Ht 73.9 cm; Wt 90.5 kg
[~2022-05-27 13:39] MED LIST changes: +NORG1TAB14 PO; -OXYC-465 PO; +OXYC-556 PO; +PHEN-483 PO
[2022-05-28] MEDS ORDERED: VALA10007 PO (09:37)
[2022-05-29] MEDS ORDERED: IBUP-1780 PO (12:43)
[2022-05-29] MEDS ORDERED: NORG1TAB14 PO (12:43)
== END 2022-05-28 09:47 | disposition home or self-care (01) ==
LOC: PREOP 13:39
PROVIDERS: ATTEND Obstetrics & Gynecology
DX: Z01.818 Encounter for other preprocedural examination (principal)

== ENCOUNTER 2022-05-29 10:33 | Day surgery (SDC) | payer OTHER ==
[~2022-05-29] VITALS: Ht 162.6 cm; Wt 90.5 kg
[2022-05-29] VITALS (11 sets, daily range): BP systolic 120–182; BP diastolic 80–120
[~2022-05-29 10:33] MED LIST changes: +VALA10007 PO
[2022-05-29] MEDS ORDERED: LACTATED RINGERS 1,000 ML IV PRN (11:00)
[2022-05-29] MEDS ORDERED: ceFAZolin INJECTION 1,000 MG in NS (IVPB) 50 ML IV ONE (11:00)
[2022-05-29 11:48] LABS: BASOPHILS % (AUTO) 1 % (0-10); EOSINOPHILS % (AUTO) 1 % (0-10); HEMATOCRIT 42 % (35-52); HEMOGLOBIN 14.1 g/dL (11.5-16.0); LYMPHOCYTES # (AUTO) 1.7 10^3/uL (1.0-4.0); LYMPHOCYTES % (AUTO) 31 % (12-44); MEAN CORPUSCULAR HEMOGLOBIN 29 pg (25-34); MEAN CORPUSCULAR HGB CONC 34 g/dL (32-36); MEAN CORPUSCULAR VOLUME 86 fL (80-99); MEAN PLATELET VOLUME 9.6 fL (9.0-12.2); MONOCYTES # (AUTO) 0.4 10^3/uL (0.0-1.0); MONOCYTES % (AUTO) 7 % (0-12); NEUTROPHILS # (AUTO) 3.3 10^3/uL (1.8-7.8); NEUTROPHILS % (AUTO) 60 % (42-75); PLATELET COUNT 291 10^3/uL (130-400); WHITE BLOOD COUNT 5.5 10^3/uL (4.3-11.0)
[2022-05-29] MEDS ORDERED: ONDANSETRON 4 MG/2 ML (SDV) Z0FRAN IV ONE (12:15)
[2022-05-29] MEDS ORDERED: FAMOTIDINE 20MG/2ML IV (PEPCID) IV ONE (12:15)
--- NOTE | 2022-05-29 12:39 | Progress Note-Pre Operative ---
Pre-Operative Progress Note Date of Available H&P: May 29, 2022 Date H&P Reviewed: May 29, 2022 Time H&P Reviewed: 12:39 History & Physical: H&P Reviewed, No changes noted Pre-Operative Diagnosis: Metromenorrhagia/intrauterine mass ALVIN TILLMAN MD May 29, 2022 12:39
--- NOTE | 2022-05-29 12:40 | Progress Note-Post Operative ---
Post-Operative Progess Note Surgeon (s)/Sand Cutter Operator (s) Surgeon ALVIN TILLMAN MD Sand Cutter Operator: none Pre-Operative Diagnosis Metromenorrhagia/intrauterine mass Post-Operative Diagnosis Same with pathology pending Procedure & Operative Findings Date of Procedure 05/29/22 Procedure Performed/Findings Hysteroscopy with directed biopsy and D&C Anesthesia Type General anesthesia Estimated Blood Loss Estimated blood loss (mL): min Specimens/Packing Specimens Removed Endometrial curettings and directed endometrial biopsy ALVIN TILLMAN MD May 29, 2022 12:40
[2022-05-29] MEDS ORDERED: NORG1TAB14 PO (12:43)
[2022-05-29] MEDS ORDERED: proPOfol 200 MG/20 ML (DIPRIVAN) VIAL IV ONE (12:43)
[2022-05-29] MEDS ORDERED: fentaNYL INJ 100 MCG/2 ML AMP ONE (12:43)
[2022-05-29] MEDS ORDERED: ONDANSETRON 4 MG/2 ML (SDV) Z0FRAN ONE (12:43)
[2022-05-29] MEDS ORDERED: LIDOCAINE PF 2% 5 ML (XYLOCAINE) VIAL ONE (12:43)
[2022-05-29] MEDS ORDERED: SEVOFLURANE (ULTANE) 15 ML INHAL SOLN ONE ×2 (12:43→13:35)
[2022-05-29] MEDS ORDERED: IBUP-1780 PO (12:43)
[2022-05-29] MEDS ORDERED: MIDAZOLAM 2 MG/2 ML (VERSED) VIAL ONE (12:44)
--- NOTE | 2022-05-29 12:44 | Discharge Inst-Surgical ---
Discharge Inst-Surgical Depart Medication/Instructions New, Converted or Re-Newed RX: Transmitted to Pharmacy Consults/Follow Up Orders & Referrals Follow Up Appt: Call to make follow up appt. for patient in 2 weeks. Activity: Rest for 24 hours, than as tolerated. Diet: As tolerated shower or tub bathe as desired. No driving for 24 hours, no alcoholic beverages for 24 hours, and nothing per vagina (no tampons, douching, or intercourse) for 2 weeks. Patient to return to the clinic as soon as possible for: Temperature greater than 101F, Severe Pain, Foul discharge from incision or vagina, Excessive Bleeding (more than a period). Activity Activity as Tolerated: No Diet Discharge Diet: No Restrictions ALVIN TILLMAN MD May 29, 2022 12:44
[2022-05-29] MEDS ORDERED: ONDANSETRON 4 MG/2 ML (SDV) Z0FRAN IVP PRN ×2 (12:45→14:00)
[2022-05-29] MEDS ORDERED: PROMETHAZINE INJ 25 MG/ML (PHENERGAN) AMP IM ONE (12:45)
[2022-05-29] MEDS ORDERED: KETOROLAC 30 MG/ML VIAL IVP ONE (12:45)
[2022-05-29] MEDS ORDERED: D5 LR IV SOLUTION 1,000 ML IV SCH (12:45)
[2022-05-29] MEDS ORDERED: ESTROGENS CONJ INJECTION 25 MG in WATER (STERILE) FOR INJECTION 5 ML IV ONE (12:45)
[2022-05-29] MEDS ORDERED: MEPERIDINE (DEMEROL) INJ 100 MG/ML IM ONE (12:45)
[2022-05-29] MEDS ORDERED: SCOPOLAMINE 1.5 MG (TRANSDERM-SCOP) PATCH ONE (12:46)
[2022-05-29] MEDS ORDERED: KETOROLAC 30 MG/ML VIAL ONE (13:40)
--- NOTE | 2022-05-29 13:49 | Anesthesia-General Post-Op ---
General Patient Condition Mental Status/LOC: Same as Preop Cardiovascular: Satisfactory Nausea/Vomiting: Absent Respiratory: Satisfactory Pain: Controlled Complications: Absent Post Op Complications Complications None Follow Up Care/Instructions Patient Instructions None needed. Anesthesia/Patient Condition Patient Condition Patient is doing well, no complaints, stable vital signs, no apparent adverse anesthesia problems. No complications reported per nursing. WILLIAM JORDAN CRNA May 29, 2022 13:49
[2022-05-29] MEDS ORDERED: MEPERIDINE (DEMEROL) INJ 50 MG/ML IVP ONE (14:00)
[2022-05-29] MEDS ORDERED: morphine INJ 10 MG/ML 1ML (SYR OR VIAL) IVP ONE (14:00)
--- NOTE | 2022-05-30 00:15 | OPERATIVE REPORT ---
DATE OF SERVICE: 05/29/2022 PREOPERATIVE DIAGNOSES: Menorrhagia and ultrasound finding of an echogenic foci in the uterus consistent with polyp versus fibroid. POSTOPERATIVE DIAGNOSES: Menorrhagia and ultrasound finding of an echogenic foci in the uterus consistent with polyp versus fibroid, pathology pending. OPERATIVE PROCEDURE: Hysteroscopy with directed biopsy and D and C. DESCRIPTION OF PROCEDURE: With the patient in the supine position, under satisfactory general anesthesia, she was repositioned in dorsal lithotomy position in the Mike stirrups and prepped and draped in the usual fashion for vaginal surgery. Weighted speculum placed in the posterior fornix of the vagina, cervix exposed and grasped anteriorly with a single tooth tenaculum. Uterus was sounded to 9 cm uterine sound. The cervix was then serially dilated with Jah dilators to a #20 Jah and then a #9 Hegar dilator was a final step in dilation. Hysteroscope was introduced and using LR as a distending medium, the endometrial cavity was examined. Both tubal ostia were seen. There was a polypoid fibrotic appearing mass emanating from the left posterior apex of the endometrial cavity. This massive tissue was grasped with a biopsy forceps and removed almost all of it in its entirety that was sent to pathology as directed biopsy. The hysteroscope was removed. The endometrial cavity was sharply curettaged to good uterine cry in all 4 quadrants. Tissue was sent to pathology as endometrial curettings. The hysteroscope was reintroduced and the endometrial cavity was examined. There was no remaining abnormal tissue. There was no significant bleeding. The hysteroscope was removed as well as the tenaculum. Tenaculum had been placed anteriorly and posteriorly due to the resistance in dilation requiring spreading of the between the anterior and posterior portion of the cervix, both tenaculum removed. There was no significant bleeding from the puncture sites posteriorly. There was 1 puncture site anteriorly oozing a bit that was touched with silver nitrate. There was minimal oozing from the cervical os. With hemostasis now assured, sponge and needle counts were correct, blood loss minimal the procedure was complete. The patient was uneventfully awakened from general anesthesia and transferred to recovery room in stable condition with plans for discharge home PAR. Job ID: [id number] DocumentID: [id number] Dictated Date: 05/29/2022 13:37:15 Recyclable Materials Collector Date: 05/30/2022 00:14:00 Dictated By: ALVIN TILLMAN MD
== END 2022-05-29 15:50 | disposition home or self-care (01) ==
LOC: SDC 10:33
PROVIDERS: ATTEND Obstetrics & Gynecology
DX: N85.8 Other specified noninflammatory disorders of uterus (principal); Z28.310 Unvaccinated for COVID-19
CPT/HCPCS: 36415; 84703; 85025; 87081

== ENCOUNTER 2022-08-04 11:43 | Outpatient (CLI) | payer OTHER ==
[~2022-08-04] VITALS: Ht 160 cm; Wt 93.4 kg
[2022-08-04] MEDS ORDERED: FERR-84 PO (12:37)
[2022-08-04] MEDS ORDERED: PHEN30CA21 PO (12:37)
[2022-08-04] MEDS ORDERED: MTP25TSR PO (12:37)
== END 2022-08-04 12:41 | disposition home or self-care (01) ==
LOC: PREOP 11:43
PROVIDERS: ATTEND Surgery
DX: Z01.818 Encounter for other preprocedural examination (principal)

== ENCOUNTER 2022-08-13 12:57 | Day surgery (SDC) | payer OTHER ==
[~2022-08-13] VITALS: Ht 160 cm; Wt 93.4 kg
[2022-08-13] VITALS (7 sets, daily range): BP systolic 119–149; BP diastolic 82–103
[~2022-08-13 12:57] MED LIST changes: +FERR-84 PO; +MTP25TSR PO; +PHEN30CA21 PO
[2022-08-13] MEDS ORDERED: LACTATED RINGERS 1,000 ML IV STA (13:01)
--- NOTE | 2022-08-13 13:52 | Progress Note-Pre Operative ---
Pre-Operative Progress Note Date of Available H&P: Jul 27, 2022 Date H&P Reviewed: Aug 13, 2022 Time H&P Reviewed: 13:51 History & Physical: H&P Reviewed, Patient Examed, No changes noted Pre-Operative Diagnosis: Painless Rectal Bleeding JEFF FU DO Aug 13, 2022 13:52
[2022-08-13] MEDS ORDERED: MIDAZOLAM 2 MG/2 ML (VERSED) VIAL ONE (14:00)
[2022-08-13] MEDS ORDERED: PROPOFOL INJECTION 50 ML IV ONE (14:22)
--- NOTE | 2022-08-13 14:58 | Discharge Inst-Simple/Standard ---
Discharge Inst-Standard Discharge Medications New, Converted or Re-Newed RX: Other (called in medications for famliy to pharmacy ) Patient Instructions/Follow Up Plan of Care/Instructions/FU: 2 weeks Philip- Albendazole Rx for whole family sent to [facility] Activity as Tolerated: Yes Discharge Diet: No Restrictions JEFF FU DO Aug 13, 2022 14:58
--- NOTE | 2022-08-13 15:02 | Anesthesia-General Post-Op ---
MAC Patient Condition Mental Status/LOC: Same as Preop Cardiovascular: Satisfactory Nausea/Vomiting: Absent Respiratory: Satisfactory Pain: Controlled Complications: Absent Post Op Complications Complications None Follow Up Care/Instructions Patient Instructions None needed. Anesthesiology Discharge Order Discharge Order Patient was doing well after the procedure with no complaints, stable vital signs, no apparent adverse anesthesia problems. No complications reported per nursing. VARSHA MONTERO 23, 2023 15:02
--- NOTE | 2022-08-13 15:02 | Progress Note-Post Operative ---
Post-Operative Progess Note Surgeon (s)/Clerical Assistant (s) Surgeon JEFF FU DO Clerical Assistant: na Pre-Operative Diagnosis Painless Rectal Bleeding Post-Operative Diagnosis Pin worms Rectal Polyp Procedure & Operative Findings Date of Procedure 08/13/22 Procedure Performed/Findings Colonoscopy with snare polypectomy with kulwant inking Anesthesia Type per [facility] Estimated Blood Loss Estimated blood loss (mL): none Specimens/Packing Specimens Removed rectal polyp x 1 colon JEFF Villeda DO Aug 13, 2022 15:02
--- NOTE | 2022-08-13 20:54 | OPERATIVE REPORT ---
DATE OF SERVICE: 08/13/2022 PREOPERATIVE DIAGNOSIS: Painless rectal bleeding. POSTOPERATIVE DIAGNOSES: Pinworms, rectal polyp. PROCEDURE: Colonoscopy with snare polypectomy and Lexi inking. SURGEON: Jeff Palacios DO ANESTHESIA: Per MDA. ESTIMATED BLOOD LOSS: None. COMPLICATIONS: None. INDICATIONS: The patient is a 32-year-old female who has been having painless rectal bleeding. She understands risks and benefits of procedure and wishes to proceed. Consent was signed in chart. DESCRIPTION OF PROCEDURE: The patient was taken to the endoscopy suite, placed in the left lateral recumbent position. Timeout was performed. Digital rectal exam was performed. No palpable polyps, masses or ulcerations. Scope was inserted in the rectum and advanced all the way to the cecum with minimal difficulty. Prep was adequate. Scope was slowly retracted back. No polyps, masses or ulcerations in the cecum, ascending, transverse, descending and sigmoid colon. Throughout the right colon, few small pinworms were visualized, one was obtained for specimen. Once in the rectum, larger polyp was present and a snare polypectomy was performed. This was obtained for specimen. The scope had to be withdrawn to get it completely removed. Scope was then reinserted, Lexi inking tattoo was performed just distal to where the polyp was present. A 1 mL in 2 locations. Scope was then slowly retracted back until completely removed, noting no other pathology. The patient tolerated the procedure well without complications, taken to recovery room in stable condition. RECOMMENDATIONS: We will treat the entire family for pinworms with albendazole. Prescriptions called in for her family. Would recommend repeat colonoscopy in months due to large polyp. After that we will need repeat colonoscopies every 5 years. Any issues before that, be seen at that time. Job ID: [id number] DocumentID: [id number] Dictated Date: 08/13/2022 15:00:54 Development Officer Date: 08/13/2022 20:52:00 Dictated By: JEFF PALACIOS DO
== END 2022-08-13 15:25 | disposition home or self-care (01) ==
LOC: ENDO 12:57
PROVIDERS: ATTEND Surgery
DX: D12.8 Benign neoplasm of rectum (principal); B80 Enterobiasis; Z28.310 Unvaccinated for COVID-19; E66.01 Morbid (severe) obesity due to excess calories; Z68.36 Body mass index [BMI] 36.0-36.9, adult
CPT/HCPCS: 36415; 84703; 88305

== ENCOUNTER 2023-04-07 06:13 | Outpatient (CLI) | payer OTHER ==
[~2023-04-07] VITALS: Ht 160 cm; Wt 86.8 kg
[2023-04-07] MEDS ORDERED: TIRZ2.5P SQ (13:50)
[2023-04-07] MEDS ORDERED: METO50TA7 PO (13:50)
== END 2023-04-07 13:55 | disposition home or self-care (01) ==
LOC: PREOP 06:13
PROVIDERS: ATTEND Surgery
DX: Z01.818 Encounter for other preprocedural examination (principal)

== ENCOUNTER 2023-04-20 07:25 | Day surgery (SDC) | payer OTHER ==
[~2023-04-20] VITALS: Ht 160 cm; Wt 86.8 kg
[~2023-04-20 07:25] MED LIST changes: +METO50TA7 PO; +TIRZ2.5P SQ
[2023-04-20] MEDS ORDERED: LACTATED RINGERS 1,000 ML 1,000 ML IV STA (07:31)
[2023-04-20 07:40] VITALS: BP 127/95
--- NOTE | 2023-04-20 08:20 | Progress Note-Post Operative ---
Post-Operative Progess Note Surgeon (s)/Inspector Poising (s) Surgeon JEFF FU DO Inspector Poising: n/a Pre-Operative Diagnosis screening/hx polyps/colonoscopy Post-Operative Diagnosis normal colonoscopy Procedure & Operative Findings Date of Procedure 04/20/23 Procedure Performed/Findings colonoscopy Anesthesia Type per [employer] Estimated Blood Loss Estimated blood loss (mL): none Specimens/Packing Specimens Removed none JEFF FU DO Apr 20, 2023 08:20
--- NOTE | 2023-04-20 08:22 | Discharge Inst-Simple/Standard ---
Discharge Inst-Standard Patient Instructions/Follow Up Plan of Care/Instructions/FU: follow up in 5 years with mick, be seen earlier if having issues Activity as Tolerated: Yes Discharge Diet: Regular Diet JEFF FU DO Apr 20, 2023 08:22
[2023-04-20 08:25] VITALS: BP 104/57
[2023-04-20 08:30] VITALS: BP 101/56
[2023-04-20 08:57] VITALS: BP 101/56
--- NOTE | 2023-04-20 13:24 | Anesthesia-General Post-Op ---
MAC Patient Condition Mental Status/LOC: Same as Preop Cardiovascular: Satisfactory Nausea/Vomiting: Absent Respiratory: Satisfactory Pain: Controlled Complications: Absent Post Op Complications Complications None Follow Up Care/Instructions Patient Instructions None needed. Anesthesiology Discharge Order Discharge Order Patient is doing well, no complaints, stable vital signs, no apparent adverse anesthesia problems. No complications reported per nursing. WILLIAM JORDAN CRNA Apr 20, 2023 13:23
--- NOTE | 2023-04-20 13:52 | OPERATIVE REPORT ---
DATE OF SERVICE: 04/20/2023 PREOPERATIVE DIAGNOSIS: History of polyps. POSTOPERATIVE DIAGNOSIS: Normal colon. PROCEDURE: Colonoscopy. SURGEON: Jeff Palacios DO ANESTHESIA: Per MASK DESIGN ENGINEER. ESTIMATED BLOOD LOSS: None. COMPLICATIONS: None. INDICATIONS: The patient is a 32-year-old female with history of polyps. She understands risks and benefits of procedure and wished to proceed. Consent was signed in chart. DESCRIPTION OF PROCEDURE: The patient was taken to endoscopy suite and placed in left lateral recumbent position. Timeout was performed. Digital rectal exam was performed. No palpable polyps, masses or ulcerations. Scope was inserted in the rectum and advanced all the way to the cecum with minimal difficulty. Prep was adequate. Scope was slowly retracted back. No polyps, masses or ulcerations in the cecum, ascending, transverse, descending and sigmoid colon. Once in the rectum, noted a tattoo from previous. No evidence of any recurrence of polyp. Scope was retroflexed, noting no other pathology. Scope was returned to its normal position, slowly withdrawn until completely removed. The patient tolerated the procedure well without complications and taken to recovery room in stable condition. RECOMMENDATIONS: The patient will need repeat colonoscopy in 5 years due to history of polyps. Any issues before that, she will be seen at that time. Job ID: [id number] DocumentID: [id number] Dictated Date: 04/20/2023 08:20:38 Film Rental Clerk Date: 04/20/2023 13:50:00 Dictated By: JEFF PALACIOS DO
== END 2023-04-20 08:57 | disposition home or self-care (01) ==
LOC: ENDO 07:25
PROVIDERS: ATTEND Surgery
DX: Z12.11 Encounter for screening for malignant neoplasm of colon (principal); Z86.010 Personal history of colon polyps; E66.9 Obesity, unspecified; Z68.33 Body mass index [BMI] 33.0-33.9, adult